=== PATIENT | male | born 1975 | race Caucasian/White ===

== ENCOUNTER 2019-08-09 20:49 | Emergency (ER) | payer OTHER ==
[~2019-08-09] VITALS: Ht 177.8 cm; Wt 104.3 kg
--- OUTSIDE RECORDS SUMMARY | 2019-08-09 20:54 | XMS REPORT ---
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 Allergies, Adverse Reactions, Alerts This patient has no known allergies or adverse reactions. Medications This patient has no known medications. Results Test Description Test Time Test Comments Text Results Atomic Results Result Comments AFB CULTURE + SMEAR 2018-08-15 14:05:00 CULTURE (BEAKER) (test iadp=4034) No acid-fast bacilli isolated in 42 days AFB SMEAR (BEAKER) (test jzca=516) No acid fast bacilli seen FUNGUS CULTURE + [id number] 07:03:00* Test Item Value Reference Range Comments CULTURE (BEAKER) (test ytne=3779) No fungus isolated in 28 days FUNGUS SMEAR (BEAKER) (test mjrt=5202) No fungi seen TISSUE [id number] 18:14:00Surgical Pathology Report Case: [id number] Authorizing Provider: Mohit Hutchins MD Collected: 06/24/2018 1456 Ordering Location: [facility] PERI[facility] Received: 06/25/2018 0827 SERVICES Pathologist: Princess Sánchez MD Specimen: Appendix APPENDIX, APPENDECTOMY: - ACUTE APPENDICITIS WITH TRANSMURAL INFLAMMATION - PERIAPPENDICITIS Signing Pathologist Direct Phone Line: [phone] signed by Princess Sánchez MD on 06/29/2018 at 6:14 [facility]/[id number] appendicitis Appendix Specimen is received in formalin-filled container labeled with the patient's information and labeled "appendix" and c onsists of an appendectomy measuring 6 cm in length x up to 0.6 cm in diameter w ith a mesoappendix measuring 5 x 1.5 x 0.5 cm. The serosa is olguin-red and dusky w ith off-white exudate throughout.Ink code: resection margin-blue.The specimen is serially sectioned revealing no area of rupture. The lumen is filled with hemor rhagic material. There is no fecalith or mass seen grossly.Section code: A1, mar gin en face with tip bisected; A2, benefits representative of appendix. CG/ew Incorporate d in the diagnosis rendered above.ANAEROBIC [id number] 11:06:00* Test Item Value Reference Range Comments CULTURE (BEAKER) (test rqlk=3816) No anaerobes isolated BLOOD [id number] 06:00:00* Test Item Value Reference Range Comments CULTURE (BEAKER) (test uutk=1858) No growth in 5 days SURGICALLY OBTAINED CULTURE + GRAM [id number] 19:27:00* Test Item Value Reference Range Comments CULTURE (BEAKER) (test ugil=8868) No growth GRAM STAIN RESULT (BEAKER) (test mkgi=5614) No WBCs GRAM STAIN RESULT (BEAKER) (test fjgt=56581) No organisms seen [id number] 06:49:00* Test Item Value Reference Range Comments PHOSPHORUS (BEAKER) (test ueph=875) 2.5 mg/dL 2.3-4.7 [id number] 06:49:00* Test Item Value Reference Range Comments MAGNESIUM (BEAKER) (test lezm=391) 2.4 mg/dL 1.6-2.6 [id number] 07:42:00* Test Item Value Reference Range Comments PHOSPHORUS (BEAKER) (test kzsv=452) 1.4 mg/dL 2.3-4.7 [id number] 07:07:00* Test Item Value Reference Range Comments MAGNESIUM (BEAKER) (test nxiw=448) 2.3 mg/dL 1.6-2.6 BASIC METABOLIC [id number] 07:07:00* Test Item Value Reference Range Comments SODIUM (BEAKER) (test ecmv=027) 137 meq/L 136-145 POTASSIUM (BEAKER) (test lilw=772) 3.6 meq/L 3.5-5.1 CHLORIDE (BEAKER) (test psdh=846) 105 meq/L 98-107 CO2 (BEAKER) (test tmjx=331) 25 meq/L 22-29 BLOOD UREA NITROGEN (BEAKER) (test gvby=523) 11 mg/dL 7-21 CREATININE (BEAKER) (test uwml=770) 0.87 mg/dL 0.57-1.25 GLUCOSE RANDOM (BEAKER) (test tyzg=142) 116 mg/dL 70-105 CALCIUM (BEAKER) (test vcqa=480) 9.0 mg/dL 8.4-10.2 EGFR (BEAKER) (test yqge=8021) 95 mL/min/1.73 sq m ESTIMATED GFR IS NOT ACCURATE CREATININE CLEARANCE IN PREDICTING GLOMERULAR FILTRATION RATE. ESTIMATED GFR IS NOT APPLICABLE FOR DIALYSIS PATIENTS. CBC W/PLT COUNT & AUTO [id number] 06:53:00* Test Item Value Reference Range Comments WHITE BLOOD CELL COUNT (BEAKER) (test vpdy=432) 11.3 K/ L 3.5-10.5 RED BLOOD CELL COUNT (BEAKER) (test rsti=479) 4.31 M/ L 4.63-6.08 HEMOGLOBIN (BEAKER) (test gthd=684) 13.5 GM/DL 13.7-17.5 HEMATOCRIT (BEAKER) (test oqpr=912) 39.3 % 40.1-51.0 MEAN CORPUSCULAR VOLUME (BEAKER) (test ifdm=073) 91.2 fL 79.0-92.2 MEAN CORPUSCULAR HEMOGLOBIN (BEAKER) (test ajvz=457) 31.3 pg 25.7-32.2 MEAN CORPUSCULAR HEMOGLOBIN CONC (BEAKER) (test itlf=743) 34.4 GM/DL 32.3-36.5 RED CELL DISTRIBUTION WIDTH (BEAKER) (test tfdb=913) 12.6 % 11.6-14.4 PLATELET COUNT (BEAKER) (test gihn=831) 197 K/CU MM 150-450 MEAN PLATELET VOLUME (BEAKER) (test mmqt=649) 9.1 fL 9.4-12.4 NUCLEATED RED BLOOD CELLS (BEAKER) (test vemz=942) 0 /100 WBC 0-0 NEUTROPHILS RELATIVE PERCENT (BEAKER) (test zsqt=130) 80 % LYMPHOCYTES RELATIVE PERCENT (BEAKER) (test lavb=874) 9 % MONOCYTES RELATIVE PERCENT (BEAKER) (test zvus=950) 9 % EOSINOPHILS RELATIVE PERCENT (BEAKER) (test wrzt=578) 1 % BASOPHILS RELATIVE PERCENT (BEAKER) (test swhz=263) 0 % NEUTROPHILS ABSOLUTE COUNT (BEAKER) (test bkdj=046) 9.03 K/ L 1.78-5.38 LYMPHOCYTES ABSOLUTE COUNT (BEAKER) (test vubz=033) 1.05 K/ L 1.32-3.57 MONOCYTES ABSOLUTE COUNT (BEAKER) (test rlmb=959) 1.03 K/ L 0.30-0.82 EOSINOPHILS ABSOLUTE COUNT (BEAKER) (test ipzd=605) 0.10 K/ L 0.04-0.54 BASOPHILS ABSOLUTE COUNT (BEAKER) (test zbvv=600) 0.02 K/ L 0.01-0.08 IMMATURE GRANULOCYTES-RELATIVE PERCENT (BEAKER) (test xvzr=7349) 0 % 0-1 SPIN/CONCENTRATION [id number] 13:33:00* Test Item Value Reference Range Comments CONCENTRATION CHARGED (BEAKER) (test pfyo=7872) Done [id number] 07:27:00* Test Item Value Reference Range Comments MAGNESIUM (BEAKER) (test anxa=319) 2.3 mg/dL 1.6-2.6 Specimen slightly hemolyzed [id number] 07:27:00* Test Item Value Reference Range Comments PHOSPHORUS (BEAKER) (test vkac=039) 2.1 mg/dL 2.3-4.7 Specimen slightly hemolyzed BASIC METABOLIC [id number] 07:27:00* Test Item Value Reference Range Comments SODIUM (BEAKER) (test xjbb=640) 139 meq/L 136-145 POTASSIUM (BEAKER) (test ysds=774) 4.1 meq/L 3.5-5.1 Specimen slightly hemolyzed CHLORIDE (BEAKER) (test jpdd=735) 107 meq/L 98-107 CO2 (BEAKER) (test obmo=569) 22 meq/L 22-29 BLOOD UREA NITROGEN (BEAKER) (test uvjy=518) 10 mg/dL 7-21 CREATININE (BEAKER) (test vqxw=688) 0.86 mg/dL 0.57-1.25 Specimen slightly hemolyzed GLUCOSE RANDOM (BEAKER) (test ouni=019) 107 mg/dL 70-105 CALCIUM (BEAKER) (test pdja=060) 9.0 mg/dL 8.4-10.2 EGFR (BEAKER) (test vqzj=6412) 96 mL/min/1.73 sq m ESTIMATED GFR IS NOT ACCURATE CREATININE CLEARANCE IN PREDICTING GLOMERULAR FILTRATION RATE. ESTIMATED GFR IS NOT APPLICABLE FOR DIALYSIS PATIENTS. CBC W/PLT COUNT & AUTO [id number] 06:19:00* Test Item Value Reference Range Comments WHITE BLOOD CELL COUNT (BEAKER) (test aigz=395) 16.9 K/ L 3.5-10.5 RED BLOOD CELL COUNT (BEAKER) (test anlu=236) 4.24 M/ L 4.63-6.08 HEMOGLOBIN (BEAKER) (test gnuq=300) 13.2 GM/DL 13.7-17.5 HEMATOCRIT (BEAKER) (test olyc=623) 39.1 % 40.1-51.0 MEAN CORPUSCULAR VOLUME (BEAKER) (test ybxh=472) 92.2 fL 79.0-92.2 MEAN CORPUSCULAR HEMOGLOBIN (BEAKER) (test sxkc=438) 31.1 pg 25.7-32.2 MEAN CORPUSCULAR HEMOGLOBIN CONC (BEAKER) (test ofhz=105) 33.8 GM/DL 32.3-36.5 RED CELL DISTRIBUTION WIDTH (BEAKER) (test fjuh=820) 12.7 % 11.6-14.4 PLATELET COUNT (BEAKER) (test cgxn=303) 174 K/CU MM 150-450 MEAN PLATELET VOLUME (BEAKER) (test vkjw=436) 9.4 fL 9.4-12.4 NUCLEATED RED BLOOD CELLS (BEAKER) (test thfw=646) 0 /100 WBC 0-0 NEUTROPHILS RELATIVE PERCENT (BEAKER) (test mlmg=703) 87 % LYMPHOCYTES RELATIVE PERCENT (BEAKER) (test ggbf=510) 4 % MONOCYTES RELATIVE PERCENT (BEAKER) (test imlc=887) 8 % EOSINOPHILS RELATIVE PERCENT (BEAKER) (test ngqo=871) 0 % BASOPHILS RELATIVE PERCENT (BEAKER) (test lghc=926) 0 % NEUTROPHILS ABSOLUTE COUNT (BEAKER) (test pnoc=394) 14.79 K/ L 1.78-5.38 LYMPHOCYTES ABSOLUTE COUNT (BEAKER) (test uvcr=285) 0.67 K/ L 1.32-3.57 MONOCYTES ABSOLUTE COUNT (BEAKER) (test euxn=323) 1.37 K/ L 0.30-0.82 EOSINOPHILS ABSOLUTE COUNT (BEAKER) (test oksr=519) 0.00 K/ L 0.04-0.54 BASOPHILS ABSOLUTE COUNT (BEAKER) (test muug=075) 0.02 K/ L 0.01-0.08 IMMATURE GRANULOCYTES-RELATIVE PERCENT (BEAKER) (test fnqk=4244) 0 % 0-1 POCT-GLUCOSE [id number] 22:49:00* Test Item Value Reference Range Comments POC-GLUCOSE METER (BEAKER) (test mawp=9518) 135 mg/dL 70-110 TESTED AT [place] [id number] [facility] [address] POCT-GLUCOSE [id number] 08:22:00* Test Item Value Reference Range Comments POC-GLUCOSE METER (BEAKER) (test jxzo=0000) 121 mg/dL 70-110 TESTED AT [address] [address] URINALYSIS W/ [id number] 06:03:00* Test Item Value Reference Range Comments COLOR (BEAKER) (test ofea=721) Light Yellow CLARITY (BEAKER) (test vyph=191) Clear SPECIFIC GRAVITY UA (BEAKER) (test zunn=796) 1.018 1.001-1.035 PH UA (BEAKER) (test ersr=692) 7.5 5.0-8.0 PROTEIN UA (BEAKER) (test zcst=346) Negative Negative GLUCOSE UA (BEAKER) (test uiib=875) Negative Negative KETONES UA (BEAKER) (test vddz=692) Negative Negative BILIRUBIN UA (BEAKER) (test bhnh=090) Negative Negative BLOOD UA (BEAKER) (test yxlr=587) Negative Negative NITRITE UA (BEAKER) (test mihk=327) Negative Negative LEUKOCYTE ESTERASE UA (BEAKER) (test ykto=515) Negative Negative UROBILINOGEN UA (BEAKER) (test tqqq=900) 0.2 mg/dL 0.2-1.0 RBC UA (BEAKER) (test tyyy=209) < /HPF WBC UA (BEAKER) (test tvsa=068) < /HPF MUCUS (BEAKER) (test qxyw=0075) Rare AMORPHOUS CRYSTALS (BEAKER) (test mgmi=6884) Rare SOURCE(BEAKER) (test duak=9738) CBC W/PLT COUNT & AUTO [id number] 04:49:00* Test Item Value Reference Range Comments WHITE BLOOD CELL COUNT (BEAKER) (test tozo=095) 12.1 K/ L 3.5-10.5 RED BLOOD CELL COUNT (BEAKER) (test nebk=790) 4.92 M/ L 4.63-6.08 HEMOGLOBIN (BEAKER) (test oavv=024) 15.3 GM/DL 13.7-17.5 HEMATOCRIT (BEAKER) (test ojlg=652) 43.3 % 40.1-51.0 MEAN CORPUSCULAR VOLUME (BEAKER) (test uevw=849) 88.0 fL 79.0-92.2 MEAN CORPUSCULAR HEMOGLOBIN (BEAKER) (test hhmb=915) 31.1 pg 25.7-32.2 MEAN CORPUSCULAR HEMOGLOBIN CONC (BEAKER) (test kjbs=093) 35.3 GM/DL 32.3-36.5 RED CELL DISTRIBUTION WIDTH (BEAKER) (test tlyg=042) 12.2 % 11.6-14.4 PLATELET COUNT (BEAKER) (test pogf=846) 194 K/CU MM 150-450 MEAN PLATELET VOLUME (BEAKER) (test aweg=438) 8.8 fL 9.4-12.4 NUCLEATED RED BLOOD CELLS (BEAKER) (test wojq=565) 0 /100 WBC 0-0 NEUTROPHILS RELATIVE PERCENT (BEAKER) (test azxm=253) 83 % LYMPHOCYTES RELATIVE PERCENT (BEAKER) (test jdow=032) 8 % MONOCYTES RELATIVE PERCENT (BEAKER) (test jjkf=418) 8 % EOSINOPHILS RELATIVE PERCENT (BEAKER) (test ptxb=793) 1 % BASOPHILS RELATIVE PERCENT (BEAKER) (test tqyo=938) 0 % NEUTROPHILS ABSOLUTE COUNT (BEAKER) (test acri=258) 10.07 K/ L 1.78-5.38 LYMPHOCYTES ABSOLUTE COUNT (BEAKER) (test aqqm=825) 0.96 K/ L 1.32-3.57 MONOCYTES ABSOLUTE COUNT (BEAKER) (test zoaj=430) 0.93 K/ L 0.30-0.82 EOSINOPHILS ABSOLUTE COUNT (BEAKER) (test dasc=313) 0.06 K/ L 0.04-0.54 BASOPHILS ABSOLUTE COUNT (BEAKER) (test rdme=668) 0.03 K/ L 0.01-0.08 IMMATURE GRANULOCYTES-RELATIVE PERCENT (BEAKER) (test cbor=6717) 0 % 0-1 BASIC METABOLIC [id number] 04:31:00* Test Item Value Reference Range Comments SODIUM (BEAKER) (test wydb=258) 136 meq/L 136-145 POTASSIUM (BEAKER) (test lqgn=837) 3.9 meq/L 3.5-5.1 CHLORIDE (BEAKER) (test iiim=919) 104 meq/L 98-107 CO2 (BEAKER) (test ruit=319) 25 meq/L 22-29 BLOOD UREA NITROGEN (BEAKER) (test yfyx=000) 10 mg/dL 7-21 CREATININE (BEAKER) (test gffj=775) 0.86 mg/dL 0.57-1.25 GLUCOSE RANDOM (BEAKER) (test qhra=027) 120 mg/dL 70-105 CALCIUM (BEAKER) (test cawz=747) 9.0 mg/dL 8.4-10.2 EGFR (BEAKER) (test jwer=2224) 96 mL/min/1.73 sq m ESTIMATED GFR IS NOT ACCURATE CREATININE CLEARANCE IN PREDICTING GLOMERULAR FILTRATION RATE. ESTIMATED GFR IS NOT APPLICABLE FOR DIALYSIS PATIENTS. URINALYSIS W/ REFLEX URINE [id number] 22:27:00* Test Item Value Reference Range Comments COLOR (BEAKER) (test spll=882) Yellow CLARITY (BEAKER) (test hraa=527) Clear SPECIFIC GRAVITY UA (BEAKER) (test jkvg=227) 1.010 1.001-1.035 PH UA (BEAKER) (test sgrn=950) 8.5 5.0-8.0 PROTEIN UA (BEAKER) (test mroj=088) Negative Negative GLUCOSE UA (BEAKER) (test vhcn=399) Negative Negative KETONES UA (BEAKER) (test fqat=180) Negative Negative BILIRUBIN UA (BEAKER) (test spjk=350) Negative Negative BLOOD UA (BEAKER) (test iogx=973) Negative Negative NITRITE UA (BEAKER) (test beoc=164) Negative Negative LEUKOCYTE ESTERASE UA (BEAKER) (test kxst=049) Negative Negative UROBILINOGEN UA (BEAKER) (test bysy=834) 0.2 mg/dL 0.2-1.0 BACTERIA (BEAKER) (test emwr=101) Rare RBC UA-MANUAL (BEAKER) (test mzto=0881) <5 /HPF WBC UA-MANUAL (BEAKER) (test ujek=2764) None Seen /HPF SQUAMOUS EPITHELIAL MANUAL (BEAKER) (test pdgn=3997) <5 /HPF SOURCE(BEAKER) (test lrsz=4256) CT, [id number] 21:09:00FINAL REPORT CT, ABDOMEN \\T\\ PELVIS, WITH IV CONTRAST INDICATION: Flank pain, stone disease suspected COMPARISON: None TECHNIQUE:Post contrast abdomen and pelvis CT. Coronal and sagittal reformatted images obtained. DOSE REDUCTION: Dose modulation, iterative reconstruction, and/or weight-based adjustment of the mA/kV was utilized to reduce the radiation dose to as low as reasonably achievable. FINDINGS: Lower thorax: Visible airspaces clear. No effusion. Liver: Low- attenuation suggesting fatty infiltration. No abnormal enhancement.Gallbladder and biliary tree: No ductal dilation or stones.Pancreas: No acute findings.Spleen: No acute findingsAdrenal Glands: No acute findings.Kidneys and ureters: No hydronephrosis or nephrolithiasis.Bladder and reproductive organs: U nremarkable. Stomach and Duodenum: No significant findings.Small and large intes juanita: Normal calibers. There are rare diverticular changes in the distal colon. No associated inflammation.Appendix: Appendix is dilated to 17 mm transverse. Mu ltiple phleboliths are present. Major vascular structures: Normal aortic caliber .Peritoneum and retroperitoneum: No free air, fluid or adenopathy. Skeleton: Modic changes and grade 1 anterolisthesis of L4 on L5. The latter secondary to bilateral pars defects.Additional findings: None. IMPRESSION: Acute, uncomplica yandel appendicitis. Findings communicated to Dr. Valle at 2110 hours on June Signed: JR Ceja Robert MDReport Verified Date/Time: 06/23/2018 21:09:11 Reading Location: [address] Reading Room Electronical ly signed by: MOHIT CEJA on 06/23/2018 09:09 PM CBC W/PLT COUNT & AUTO [id number] 20:38:00* Test Item Value Reference Range Comments WHITE BLOOD CELL COUNT (BEAKER) (test tvkf=346) 10.5 K/ L 4.0-10.0 RED BLOOD CELL COUNT (BEAKER) (test xbvl=606) 5.05 M/ L 4.20-5.80 HEMOGLOBIN (BEAKER) (test gmjg=944) 15.6 GM/DL 13.0-16.8 HEMATOCRIT (BEAKER) (test apbk=577) 46.1 % 40.0-50.0 MEAN CORPUSCULAR VOLUME (BEAKER) (test zotb=024) 91.2 fL 82.0-98.0 MEAN CORPUSCULAR HEMOGLOBIN (BEAKER) (test kxag=202) 31.0 pg 27.0-33.0 MEAN CORPUSCULAR HEMOGLOBIN CONC (BEAKER) (test xmaz=310) 34.0 GM/DL 32.0-36.0 RED CELL DISTRIBUTION WIDTH (BEAKER) (test mguw=014) 12.2 % 10.3-14.2 PLATELET COUNT (BEAKER) (test owru=901) 238 K/CU MM 150-430 MEAN PLATELET VOLUME (BEAKER) (test lndp=564) 7.0 fL 6.5-10.5 NEUTROPHILS RELATIVE PERCENT (BEAKER) (test ufvs=305) 71 % LYMPHOCYTES RELATIVE PERCENT (BEAKER) (test zhjh=836) 17 % MONOCYTES RELATIVE PERCENT (BEAKER) (test fjjh=967) 9 % EOSINOPHILS RELATIVE PERCENT (BEAKER) (test xkxb=942) 3 % BASOPHILS RELATIVE PERCENT (BEAKER) (test zego=516) 1 % NEUTROPHILS ABSOLUTE COUNT (BEAKER) (test szlz=672) 7.44 K/ L 1.80-8.00 LYMPHOCYTES ABSOLUTE COUNT (BEAKER) (test etiv=282) 1.81 K/ L 1.48-4.50 MONOCYTES ABSOLUTE COUNT (BEAKER) (test lntk=675) 0.92 K/ L 0.00-1.30 EOSINOPHILS ABSOLUTE COUNT (BEAKER) (test mbem=359) 0.26 K/ L 0.00-0.50 BASOPHILS ABSOLUTE COUNT (BEAKER) (test lmkk=963) 0.07 K/ L 0.00-0.20 COMPREHENSIVE METABOLIC [id number] 20:35:00* Test Item Value Reference Range Comments TOTAL PROTEIN (BEAKER) (test znwt=787) 7.4 gm/dL 6.0-8.5 ALBUMIN (BEAKER) (test zdpd=5393) 4.3 g/dL 3.5-5.0 ALKALINE PHOSPHATASE (BEAKER) (test bzrs=933) 79 U/L 30-115 BILIRUBIN TOTAL (BEAKER) (test hleu=830) 1.3 mg/dL 0.1-1.2 SODIUM (BEAKER) (test xqgc=775) 139 meq/L 135-148 POTASSIUM (BEAKER) (test qury=030) 3.6 meq/L 3.6-5.5 CHLORIDE (BEAKER) (test wuuu=387) 99 meq/L 98-106 CO2 (BEAKER) (test wrpb=178) 29 meq/L 24-32 BLOOD UREA NITROGEN (BEAKER) (test dpgt=127) 12 mg/dL 10-26 CREATININE (BEAKER) (test gdaa=982) 0.84 mg/dL 0.50-1.20 GLUCOSE RANDOM (BEAKER) (test vbry=961) 107 mg/dL 70-110 CALCIUM (BEAKER) (test vjan=963) 9.2 mg/dL 8.5-10.5 AST (SGOT) (BEAKER) (test fcwi=643) 30 U/L 5-40 ALT (SGPT) (BEAKER) (test anbd=393) 55 U/L 5-50 EGFR (BEAKER) (test ikob=2855) 99 mL/min/1.73 sq m ESTIMATED GFR IS NOT ACCURATE CREATININE CLEARANCE IN PREDICTING GLOMERULAR FILTRATION RATE. ESTIMATED GFR IS NOT APPLICABLE FOR DIALYSIS PATIENTS. [id number] 20:35:00* Test Item Value Reference Range Comments LIPASE (BEAKER) (test hdjz=048) 59 U/L 40-240 17901& PELVIS W/O [id number] 07:35:40DICTATION LOCATION: [id number] INFORMATION:Abd pain-Flank pain-Kidney stones COMPARISON: 01/21/2016PROCEDURE: CT of the Abdomen and Pelvis was performed without intravenous contrast.Intravenous contrast: None.Sagittal and coronal reformats were performed.One or more of the following dose reduction techniques were use d:Automated exposure control, adjustment of the mA and/or kV according topatient size, and/or utilization of iterative reconstruction technique. FINDINGS:LOWER CHEST: Within normal limits.LIVER: Within normal limits.BILE DUCTS: Normal calib er.GALLBLADDER: Within normal limits.SPLEEN: Within normal limits.PANCREAS: With in normal limits.ADRENALS: Within normal limits.KIDNEYS/URETERS: There is a 7 mm stone at the right ureterovesicaljunction resulting in moderate hydroureteronep hrosis and rightperinephric inflammation.BLADDER: Within normal limits.REPRODUCT TOÑO ORGANS: UnremarkableBOWEL: No bowel obstruction. Appendix is enlarged to 10 mm anddemonstrates a few intraluminal densities, likely appendicoliths.Appearanc e of the appendix is unchanged compared to the prior exam dated01/21/2016PERITONEU M: No ascites.VESSELS: Within normal limits.RETROPERITONEUM: No lymphadenopathy. ABDOMINAL WALL: Within normal limits.BONES: Grade 1 anterolisthesis of L4 on L5 with bilateral parsinterarticularis defects. Severe degenerative changes at L4- 5.IMPRESSION: A 7 mm obstructing stone at the right ureterovesical junction res ultingin moderate hydroureteronephrosis and right perinephric inflammation.Grade 1 anterolisthesis of L4 on L5 with bilateral pars interarticularisdefects. Urinalysis [id number] 07:09:00* Test Item Value Reference Range Comments Color (test code=COLOR) Yellow Yellow,Straw,Pl yellow Clarity (test code=CLAR) Clear Clear Specific [place] (test code=SPGR) 1.015 1.001-1.035 pH (test code=PH) 7.0 5.0-9.0 Ketone (test code=KET) Negative mg/dL Negative Glucose (test code=GLUCUR) Negative mg/dL Negative Protein (test code=PROT) Negative mg/dL Negative Bilirubin (test code=BILI) Negative mg/dL Negative Occult Blood (test code=UDOB) Negative Negative Urobilinogen (test code=UROB) 0.2 mg/dL 0.2-1.0 Nitrite (test code=NIT) Negative Negative Leuk Esterase (test code=LEUK) Small Negative Micros Exam (test code=MEXAM) Indicated Epithelial Cells (test code=EPI) Few /LPF 0-30 WBC, Urine (test code=UWBC) 6-10 /HPF 0-5 RBC, Urine (test code=URBC) 0-3 /HPF 0-5 Bacteria (test code=BACT) Moderate /HPF Comprehensive Metabolic [id number] 06:29:00* Test Item Value Reference Range Comments Sodium (test code=NA) 137 mmol/L 135-145 Potassium (test code=K) 4.1 mmol/L 3.5-5.1 Chloride (test code=CL) 103 mmol/L 98-105 Carbon Dioxide (test code=CO2) 25 mmol/L 22-29 Glucose (test code=GLU) 102 mg/dL 70-115 Blood Urea Nitrogen (test code=BUN) 14 mg/dL 6-20 Creatinine (test code=CREAT) 1.1 mg/dL 0.7-1.2 Calcium (test code=CA) 9.4 mg/dL 8.3-10.5 Prot Total (test code=TP) 6.7 g/dL 6.4-8.3 Albumin (test code=ALB) 4.5 g/dL 3.5-5.2 A/G Ratio (test code=AGRATIO) 2.0 Ratio Globulin (test code=GLOB) 2.2 2.9-3.1 Bili Total (test code=TBIL) 0.8 mg/dL 0.1-0.9 Alk Phos (test code=APHOS) 74 U/L 40-129 AST (test code=AST) 28 U/L 1-40 ALT (test code=ALT) 52 U/L 1-41 BUN/Creatinine Ratio (test code=BCRATIO) 12.7 Anion Gap (test code=AGAP) 9 mmol/L 7-16 Estimated GFR (test code=GFR) >60 mL/min/1.73m2 eGFR (estimated Glomerular Filtration Rate) is an estimated value,calculated from the patient's serum creatinine using the MDRD equation.It is NOT the patient's actual GFR. The eGFR provides a more clinicallyuseful measure of kidney disease than serum creatinine alone.This calculation takes sex and race into account, if the informationis provided. If the race is not provided, and the patient isAfrican-[place], multiply by 1.212. If sex is not provided, and thepatient is female, multiply by 0.742. Results for patients <18 years ofage have not been validated by the MDRD study and should be interpretedwith caution.eGFR Result Interpretation:eGFR > or=60 is in the Normal RangeeGFR < 60 may mean kidney diseaseeGFR < 15 may mean kidney failureRanges recommended by the National Kidney Foundat ion,http://nkdep.nih.gov [id number] 06:29:00* Test Item Value Reference Range Comments Lipase (test code=LIP) 36 U/L 13-60 CBC with [id number] 06:26:00* Test Item Value Reference Range Comments WBC (test code=WBC) 6.7 K/cumm 4.4-10.5 RBC (test code=RBC) 4.68 M/cumm 4.10-5.70 Hemoglobin (test code=HGB) 15.0 gm/dL 13.4-17.4 Hematocrit (test code=HCT) 41.5 % 38.7-52.0 MCV (test code=MCV) 88.7 fL 80-100 MCH (test code=MCH) 32.1 pg 27.0-32.5 MCHC (test code=MCHC) 36.2 g/dL 32.0-37.5 RDW (test code=RDW) 12.8 % 11.5-14.5 Platelet Count (test code=PLTCT) 275 K/cumm 140-440 MPV (test code=MPV) 6.8 fL Diff Method (test code=DIFFM) Auto Neutrophil (test code=NEUT) 69.8 % 36-70 Lymphocyte (test code=LYMPH) 20.0 % 12-44 Monocyte (test code=MONO) 7.7 % 0-11 Eosinophil (test code=EOS) 2.0 % 0-7 Basophil (test code=BASO) 0.5 % 0-2 Neutro Abs (test code=ANEUT) 4.7 K/cumm 1.6-7.4 Lymph Abs (test code=ALYMPH) 1.3 K/cumm 0.5-4.6 [place] Abs (test code=AMONO) 0.5 K/cumm 0.0-1.2 Eos Abs (test code=AEOS) 0.14 K/cumm 0.00-0.74 Baso Abs (test code=ABASO) 0.0 K/cumm 0.00-0.21
[2019-08-09] MEDS ORDERED: IBUPROFEN 600 MG TAB PO ONE (21:32)
[2019-08-09 22:04] LABS: STREPTOCOCCUS GRP A ANTIGEN NEGATIVE (NEGATIVE)
[2019-08-09 22:14] LABS: INFLUENZAE A&B ANTIGEN (RAPID) POSITIVE FLU A (NEGATIVE)
--- NOTE | 2019-08-09 22:24 | Diagnostic Imaging Report ---
EXAMINATION: CHEST 2 VIEWS INDICATION: Fever. COMPARISON: None FINDINGS: TUBES and LINES: None. LUNGS: Low lung volumes with minimal patchy right basilar opacity, likely atelectasis. No evidence of lobar pneumonia or pulmonary edema. PLEURA: No pleural effusion or pneumothorax. HEART AND MEDIASTINUM: The cardiomediastinal silhouette is unremarkable. Scattered atherosclerotic calcifications of the aortic arch. BONES AND SOFT TISSUES: No acute osseous abnormality UPPER ABDOMEN: No free air under the diaphragm. IMPRESSION: No acute radiographic abnormality. Signed by: Dr. Dewayne Zayas MD on 08/09/2019 10:21 PM
[2019-08-09] MEDS ORDERED: ACETAMINOPHEN 325 MG TAB PO ONE ×2 (22:45)
== END 2019-08-09 23:00 | disposition home or self-care (01) ==
LOC: ER 20:49
DX: R50.9 Fever, unspecified (principal); R05 Cough; J11.1 Influenza due to unidentified influenza virus with other respiratory manifestations; E78.5 Hyperlipidemia, unspecified
CPT/HCPCS: 71046; 83518; 87070; 87400; 99283